=== PATIENT | female | born 1965 | race Caucasian/White ===

== ENCOUNTER 2021-08-27 12:42 | Emergency (ER) | payer SELFPAY ==
[~2021-08-27] VITALS: Ht 172.7 cm; Wt 81.6 kg
--- NOTE | 2021-08-27 13:00 | NUR ---
ER BED 12 NAUSEA, DIZZINESS, SWEATING, NOT ABLE TO SLEEP x 2DAY. NO CHEST PAIN. NO SOB. NOTABLY ANXIOUS.
[2021-08-27] MEDS ORDERED: LORAZEPAM 1 MG TABLET PO ONE ×2 (13:30→14:00)
[2021-08-27] MEDS ORDERED: LORAZEPAM 1 MG TABLET ONE ×2 (13:42→13:45)
[2021-08-27 13:49] VITALS: BP 160/90
--- NOTE | 2021-08-27 13:51 | NUR ---
Patient discharged to home in stable condition. Written and verbal after care instructions given. Patient verbalizes understanding of instruction.
== END 2021-08-27 13:51 | disposition home or self-care (01) ==
LOC: ER 12:44
DX: F41.9 Anxiety disorder, unspecified (principal); Z76.0 Encounter for issue of repeat prescription; F32.A Depression, unspecified; G47.00 Insomnia, unspecified

== ENCOUNTER 2021-09-23 15:51 | Emergency (ER) | payer SELFPAY ==
[~2021-09-23] VITALS: Ht 172.7 cm; Wt 86.2 kg
[2021-09-23 16:36] VITALS: BP 136/91
--- NOTE | 2021-09-23 17:21 | NUR ---
Patient eloped from facility. ER MD notified.
== END 2021-09-23 17:21 | disposition left against medical advice (07) ==
LOC: ER 15:58
DX: Z53.21 Procedure and treatment not carried out due to patient leaving prior to being seen by health care provider (principal)

== ENCOUNTER 2021-09-25 09:59 | Emergency (ER) | payer SELFPAY ==
[~2021-09-25] VITALS: Ht 172.7 cm; Wt 86.2 kg
[2021-09-25 10:01] VITALS: BP 133/100
--- NOTE | 2021-09-25 10:01 | NUR ---
TO ER BED 3, BIB SELF "I THINK I'M HAVING CONVULSION FOR NOT TAKING ATIVAN FOR 3 DAYS" MED REFILL FOR ATIVAN, AAOX3, BREATHING EVEN AND NON LABORED, CONNECTED TO MONITOR, AWAITING MD MORRIS
--- NOTE | 2021-09-25 10:03 | NUR ---
AT BEDSIDE FOR EVAL.
[2021-09-25] MEDS ORDERED: LORAZEPAM 1 MG TABLET ONE ×2 (10:23→11:20)
[2021-09-25] MEDS ORDERED: LORAZEPAM 1 MG TABLET PO ONE ×2 (10:30→11:30)
[2021-09-25] MEDS ORDERED: LORA-259 PO ×2 (10:49→10:51)
--- NOTE | 2021-09-25 11:20 | NUR ---
PT STATED HER FRIEND IS THE ONE WILL DRIVE HER HOME.
--- NOTE | 2021-09-25 11:23 | NUR ---
Patient discharged to home in stable condition. Written and verbal after care instructions given. Patient verbalizes understanding of instruction.
== END 2021-09-25 11:24 | disposition home or self-care (01) ==
LOC: ER 10:00
DX: F13.20 Sedative, hypnotic or anxiolytic dependence, uncomplicated (principal); F41.9 Anxiety disorder, unspecified; F32.A Depression, unspecified; Z60.2 Problems related to living alone

== ENCOUNTER 2021-09-30 23:17 | Emergency (ER) | payer SELFPAY ==
[~2021-09-30] VITALS: Ht 172.7 cm; Wt 83.9 kg
[~2021-09-30 23:17] MED LIST: LORA-259 PO
[2021-10-01] MEDS ORDERED: LORA-259 PO (00:32)
[2021-10-01] MEDS ORDERED: ONDANSETRON 4 MG TAB.RAPDIS ONE (00:43)
[2021-10-01] MEDS: ONDANSETRON 4 MG TAB.RAPDIS SL ONE (00:46)
--- NOTE | 2021-10-01 00:46 | NUR ---
Patient discharged to home in stable condition. Written and verbal after care instructions given. Patient verbalizes understanding of instruction.
[2021-10-01 00:47] VITALS: BP 130/90
== END 2021-10-01 00:47 | disposition home or self-care (01) ==
LOC: ER 23:20
DX: Z76.0 Encounter for issue of repeat prescription (principal); F13.20 Sedative, hypnotic or anxiolytic dependence, uncomplicated; F41.9 Anxiety disorder, unspecified; F32.A Depression, unspecified; Z60.2 Problems related to living alone; Z79.899 Other long term (current) drug therapy
CPT/HCPCS: 99282; Q0162

== ENCOUNTER 2021-12-04 08:32 | Emergency (ER) | payer SELFPAY ==
[~2021-12-04] VITALS: Ht 172.7 cm; Wt 86.2 kg
--- NOTE | 2021-12-04 08:51 | NUR ---
DR MCCANN AT BEDSIDE
[2021-12-04] MEDS ORDERED: LORA-259 PO (08:58)
[2021-12-04] MEDS ORDERED: ONDA4TAB5 PO (08:58)
[2021-12-04] MEDS ORDERED: ONDANSETRON 4 MG TAB.RAPDIS ONE ×2 (08:59→09:02)
[2021-12-04] MEDS ORDERED: LORAZEPAM 0.5 MG TABLET ONE (08:59)
[2021-12-04] MEDS ORDERED: LORAZEPAM 1 MG TABLET PO ONE (09:00)
[2021-12-04] MEDS ORDERED: ONDANSETRON 4 MG TAB.RAPDIS SL ONE (09:00)
[2021-12-04] MEDS ORDERED: FLUC150T PO (09:07)
--- NOTE | 2021-12-04 09:09 | NUR ---
Patient discharged to home in stable condition. Written and verbal after care instructions given. Patient verbalizes understanding of instruction.
[2021-12-04 09:11] VITALS: BP 125/92
== END 2021-12-04 09:11 | disposition home or self-care (01) ==
LOC: ER 08:36
DX: R11.2 Nausea with vomiting, unspecified (principal); F41.0 Panic disorder [episodic paroxysmal anxiety]; F32.A Depression, unspecified; G47.00 Insomnia, unspecified; Z60.2 Problems related to living alone; Z79.899 Other long term (current) drug therapy
CPT/HCPCS: 99283; Q0162 ×2

== ENCOUNTER 2022-01-08 01:01 | Emergency (ER) | payer SELFPAY ==
[~2022-01-08] VITALS: Ht 167.6 cm; Wt 86.2 kg
[~2022-01-08 01:01] MED LIST changes: +FLUC150T PO; +ONDA4TAB5 PO
[2022-01-08 01:11] VITALS: BP 136/77
[2022-01-08] MEDS ORDERED: LORAZEPAM 1 MG TABLET PO ONE (01:30)
[2022-01-08] MEDS ORDERED: LORAZEPAM 1 MG TABLET ONE (01:34)
== END 2022-01-08 01:38 | disposition home or self-care (01) ==
LOC: ER 01:03
DX: F13.20 Sedative, hypnotic or anxiolytic dependence, uncomplicated (principal); F41.9 Anxiety disorder, unspecified; F32.A Depression, unspecified; G47.00 Insomnia, unspecified; Z60.2 Problems related to living alone; Z79.899 Other long term (current) drug therapy

== ENCOUNTER 2022-01-10 11:33 | Emergency (ER) | payer SELFPAY ==
[~2022-01-10] VITALS: Ht 172.7 cm; Wt 86.2 kg
[2022-01-10 11:39] VITALS: BP 151/107
--- NOTE | 2022-01-10 11:40 | NUR ---
The patient bibs for lorazepam refill off for 2 days. Denies SI/HI. Denies having auditory/visual hallucinations. Will continue to monitor the patient.
--- NOTE | 2022-01-10 12:01 | NUR ---
Patient discharged to home in stable condition. Written and verbal after care instructions given. Patient verbalizes understanding of instruction. Addendum: 01/10/22 at 1201 by NIESHA Pt refused to sign discharge form, provided d/c papers.
== END 2022-01-10 12:02 | disposition home or self-care (01) ==
LOC: ER 11:36
DX: F41.9 Anxiety disorder, unspecified (principal); F13.20 Sedative, hypnotic or anxiolytic dependence, uncomplicated; Z76.0 Encounter for issue of repeat prescription; F32.A Depression, unspecified; G47.00 Insomnia, unspecified; Z60.2 Problems related to living alone; Z79.899 Other long term (current) drug therapy